=== PATIENT | male | born 1995 | race Caucasian/White ===

== ENCOUNTER 2019-02-05 09:40 | Emergency (ER) | payer BC, MEDICARE ==
[~2019-02-05] VITALS: Ht 172.7 cm; Wt 64.0 kg
[2019-02-05 09:43] VITALS: BP 117/81
[2019-02-05] MEDS ORDERED: IBUPROFEN 800 MG TAB PO ONE (10:00)
[2019-02-05] MEDS ORDERED: SULFAMETH/TRIMETH DS 800/160MG 1 TAB PO ONE (10:40)
[2019-02-05] MEDS ORDERED: CEPHALEXIN 500 MG CAP PO ONE (10:40)
[2019-02-05 11:24] VITALS: BP 117/81
== END 2019-02-05 11:25 | disposition home or self-care (01) ==
LOC: MED 09:40
DX: S63.91XA Sprain of unspecified part of right wrist and hand, initial encounter (principal); S61.451A Open bite of right hand, initial encounter; L08.9 Local infection of the skin and subcutaneous tissue, unspecified; Y04.0XXA Assault by unarmed brawl or fight, initial encounter; Y93.89 Activity, other specified; Y92.511 Restaurant or cafe as the place of occurrence of the external cause; Y99.8 Other external cause status
CPT/HCPCS: 73130; 90471; 90715; 99284

== ENCOUNTER 2019-08-27 01:32 | Emergency (ER) | payer SELFPAY ==
[~2019-08-27] VITALS: Ht 175.3 cm; Wt 61.2 kg
--- NOTE | 2019-08-27 01:33 | NUR ---
PT TAKEN TO BED 5
[2019-08-27 01:45] VITALS: BP 126/88
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
--- NOTE | 2019-08-27 01:57 | NUR ---
PT TAKEN TO BED 5
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
--- NOTE | 2019-08-27 02:00 | NUR ---
PT TAKEN TO CT
[2019-08-27 02:11] LABS: APPEARANCE,URINE CLEAR (CLEAR); BILIRUBIN,URINE NEGATIVE (NEGATIVE); BLOOD, URINE TRACE-L (NEGATIVE); COLOR,URINE YELLOW (YELLOW); LEUKOCYTE ESTERASE ,URINE NEGATIVE (NEGATIVE); NITRITE, URINE NEGATIVE (NEGATIVE); PH,URINE 5.5 (5.0-9.0); UGLUCOSE NEGATIVE (NEGATIVE)
--- NOTE | 2019-08-27 02:18 | NUR ---
PT RETURNED FROM CT
[2019-08-27] MEDS ORDERED: oxyCODONE/APAP 5/325 MG 1 TAB TAB PO ONE (02:25)
--- NOTE | 2019-08-27 02:29 | NUR ---
LAB AT BEDSIDE DRAWING LABS
[2019-08-27 02:32] LABS: BARBITURATE, URINE NEG. ng/ml (NEG <=200); BENZODIAZEPINE, URINE NEG. ng/mL (NEG <=200); CANNABINOID, URINE NEG. ng/mL (NEG <=50); COCAINE, URINE POS. ng/mL (NEG <=300); OPIATE, URINE NEG. ng/mL (NEG <=2000); PHENCYCLIDINE SCREEN,URINE NEG. ng/mL (NEG <=25)
[2019-08-27 02:36] LABS: RBC,URINE 0-5 /HPF (0-5); WBC,URINE NONE SEEN /HPF (0-5)
--- NOTE | 2019-08-27 02:47 | NUR ---
PT NOW ANSWERING QUESTIONS. ANSWERS ARE STILL DELAYED, BUT MAKING MORE SENSE.
[2019-08-27 02:51] LABS: BASOPHILS # (AUTO) 0.1 K/uL (0.00-0.22); BASOPHILS % (AUTO) 0.6 % (0.0-2.0); HEMATOCRIT 43.5 % (36-52); HEMOGLOBIN 15.1 g/dL (12.0-18.0); LYMPHOCYTES # (AUTO) 0.7 K/uL (2.0-11.5); LYMPHOCYTES % (AUTO) 5.8 % (20.5-51.1); MEAN CORPUSCULAR HEMOGLOBIN 31 pg (27-31); MEAN CORPUSCULAR HGB CONC 35 g/dL (33-37); MEAN CORPUSCULAR VOLUME 89.9 fL (80-94); MONOCYTES # (AUTO) 0.5 K/uL (0.8-1.0); NEUTROPHILS # (AUTO) 10.9 K/uL (1.8-7.7); PLATELET COUNT (AUTO) 220 K/uL (140-450); RED BLOOD CELL COUNT(AUTO) 4.84 MIL/uL (4.20-6.10); RED CELL DISTRIBUTION WIDTH 12.6 % (11.6-13.7); WHITE BLOOD COUNT (AUTO) 12.2 K/uL (4.8-10.8)
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
[2019-08-27 03:10] LABS: ALBUMIN 4.6 g/dL (3.4-5.0); ANION GAP 13.3 (8-16); CARBON DIOXIDE 27.4 mmol/L (21-32); CREATININE 1.1 mg/dL (0.6-1.3); NEUTROPHILS % (AUTO) 89.6 % (42.2-75.2); POTASSIUM 3.7 mmol/L (3.5-5.1); TOTAL BILIRUBIN 0.4 mg/dL (0.0-1.0)
--- NOTE | 2019-08-27 03:44 | NUR ---
PT IS A/O X4 AT THIS TIME
[2019-08-27] MEDS ORDERED: ceFAZolin 1,000 MG VIAL ONE (03:50)
--- NOTE | 2019-08-27 04:25 | NUR ---
DR PRICE AT BEDSIDE.
[2019-08-27 04:52] VITALS: BP 126/88
--- NOTE | 2019-08-27 04:59 | NUR ---
Patient discharged with v/s stable. Written and verbal after care instructions given and explained. Patient verbalized understanding. Ambulatory with steady gait. All questions addressed prior to discharge. Advised to follow up with PMD.
== END 2019-08-27 04:59 | disposition home or self-care (01) ==
LOC: MED 01:32
DX: R51 Headache (principal); R55 Syncope and collapse; Y04.2XXA Assault by strike against or bumped into by another person, initial encounter; Y93.89 Activity, other specified; Y92.89 Other specified places as the place of occurrence of the external cause; Y99.8 Other external cause status
CPT/HCPCS: 36415; 70450; 70486; 72125; 80053; 80305; 81001; 85025; 96365; 99285; G0482; J0690

== ENCOUNTER 2019-09-05 23:57 | Emergency (ER) | payer SELFPAY ==
[~2019-09-05] VITALS: Ht 172.7 cm; Wt 63.5 kg
[2019-09-06 00:10] VITALS: BP 127/69
--- NOTE | 2019-09-06 00:10 | NUR ---
TO BED # 08 AMBULATORY
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
[2019-09-06 00:45] VITALS: BP 126/68
== END 2019-09-06 00:45 | disposition home or self-care (01) ==
LOC: MED 23:57
DX: Z48.00 Encounter for change or removal of nonsurgical wound dressing (principal)
CPT/HCPCS: 99281